=== PATIENT | female | born 1935 | race Native Hawaiian/Other Pacific Islander ===

== ENCOUNTER 2017-01-29 13:54 | Outpatient (CLI) | payer OTHER, MEDICARE ==
[~2017-01-29 13:54] MED LIST: LEVO0.0529 PO; METF500T PO
== END 2017-01-29 15:00 | disposition home or self-care (01) ==
LOC: RAD 13:54
DX: J20.8 Acute bronchitis due to other specified organisms (principal)

== ENCOUNTER 2021-03-21 10:20 | Outpatient (CLI) | payer OTHER, MEDICARE | END 2021-03-21 22:40 | disposition home or self-care (01) | LOC: RAD 10:20 | PROVIDERS: ATTEND Registered Nurse | DX: R06.02 Shortness of breath (principal); U07.1 COVID-19 ==